=== PATIENT | male | born 1985 | race Caucasian/White ===

== ENCOUNTER 2022-05-20 18:46 | Inpatient (IN) | payer MEDICAID ==
[~2022-05-20] VITALS: Ht 162.6 cm; Wt 73.0 kg
[2022-05-20] MEDS ORDERED: MORPHINE SULFATE 4 MG/ML CPJ (NOT FOR IM USE) IV STA (19:11)
[2022-05-20] MEDS ORDERED: ONDANSETRON HCL 4MG/2ML INJ IV STA (19:11)
[2022-05-20] MEDS ORDERED: SODIUM CHLORIDE 0.9% 1,000 ML IV ONE (19:15)
[2022-05-20] MEDS ORDERED: PANTOPRAZOLE SODIUM 40 MG/VIAL IV ONE (19:15)
[2022-05-20 19:52] LABS: BASOPHILS % 0.6 % (0.0-2.0); EOSINOPHILS % 0.2 % (0.0-5.0); HEMATOCRIT. 47.8 % (42.0-52.0); HEMOGLOBIN. 16.3 g/dL (14.0-18.0); LYMPHOCYTES % 20.7 % (20.0-50.0); MEAN CORPUSCULAR HEMOGLOBIN 31.2 pg (28.0-32.0); MEAN CORPUSCULAR VOLUME 91.4 fL (80.0-94.0); MEAN PLATELET VOLUME 7.2 fl (7.4-10.4); MONOCYTES % 8.4 % (2.0-8.0); NEUTROPHILS % 70.1 % (40.0-76.0); PLATELET 367 x1000/uL (130-400); RED BLOOD CELL COUNT 5.23 mill/uL (4.7-6.1); RED CELL DISTRIBUTION WIDTH 13.2 % (11.6-14.6)
[2022-05-20 20:01] LABS: PARTIAL THROMBOPLASTIN TIME 29.1 sec (23.4-31.0); PROTHROMBIN TIME 10.4 sec (9.6-11.0)
[2022-05-20 20:05] LABS: CHLORIDE 103 mEq/L (98-107)
[2022-05-20 20:16] LABS: ETHANOL BLOOD 124 mg/dL
[2022-05-20] MEDS: ONDANSETRON HCL 4MG/2ML INJ IV NR ×2 (21:06→21:07)
[2022-05-20 21:35] LABS: *AMPHETAMINES SCREEN URINE NEGATIVE (NEGATIVE); *BARBITURATES SCREEN URINE NEGATIVE (NEGATIVE); *BENZODIAZEPINES SCREEN URINE NEGATIVE (NEGATIVE); *COCAINE SCREEN URINE NEGATIVE (NEGATIVE); CANNABINOID URINE SCREEN NEGATIVE (NEGATIVE); METHADONE URINE SCREEN NEGATIVE (NEGATIVE); OPIATES URINE SCREEN NEGATIVE (NEGATIVE); PHENCYCLIDINE URINE SCREEN NEGATIVE (NEGATIVE)
[2022-05-20] MEDS ORDERED: NA PHOS,M-B/NA PHOS,DI-BA ENEMA 118ML PR PRN (21:45)
[2022-05-20] MEDS ORDERED: GUAIFENESIN 200MG/10ML SUGAR FREE UDC PO PRN (21:45)
[2022-05-20] MEDS ORDERED: LORAZEPAM 2MG/ML CPJ IV PRN (21:45)
[2022-05-20] MEDS ORDERED: IPRATROPIUM/ALBUTEROL 0.5-3(2.5)MG/3ML NEB NEB PRN (21:45)
[2022-05-20] MEDS ORDERED: KETOROLAC 15MG/ML VIAL IV PRN (21:45)
[2022-05-20] MEDS ORDERED: ZOLPIDEM TARTRATE 5MG TABLET PO PRN (21:45)
[2022-05-20] MEDS ORDERED: CLONIDINE 0.1MG TABLET PO PRN (21:45)
[2022-05-20] MEDS ORDERED: ACETAMINOPHEN 325MG TABLET PO PRN ×2 (21:45)
[2022-05-20] MEDS ORDERED: NITROGLYCERIN 0.4MG TABLET SL SL PRN (21:45)
[2022-05-20] MEDS ORDERED: ONDANSETRON HCL 4MG/2ML INJ IV PRN (21:45)
[2022-05-20] MEDS ORDERED: MAGNESIUM/ALUMINUM HYDROXIDE/SIMETHICONE 30ML UDC PO PRN (21:45)
[2022-05-20] MEDS ORDERED: DOCUSATE SODIUM 100MG CAPSULE PO PRN (21:45)
[2022-05-20 22:29] LABS: T4 FREE 0.93 ng/dL (0.76-1.46)
[2022-05-20 22:46] LABS: FOLIC ACID (FOLATE) SERUM 4.6 ng/mL (>5.38)
[2022-05-20] MEDS ORDERED: MVI, ADULT NO.1 10 ML, FOLIC ACID 1 MG, THIAMINE HCL 100 MG in SODIUM CHLORIDE 0.9% 1,0... IV SCH ×4 (23:00)
[2022-05-21 05:14] LABS: CHLORIDE 104 mEq/L (98-107)
[2022-05-21 05:15] LABS: BASOPHILS % 0.5 % (0.0-2.0); EOSINOPHILS % 0.2 % (0.0-5.0); HEMOGLOBIN. 14.8 g/dL (14.0-18.0); LYMPHOCYTES % 14.2 % (20.0-50.0); MEAN CORPUSCULAR HEMOGLOBIN 30.7 pg (28.0-32.0); MEAN CORPUSCULAR VOLUME 91.2 fL (80.0-94.0); MEAN PLATELET VOLUME 7.4 fl (7.4-10.4); MONOCYTES % 7.5 % (2.0-8.0); NEUTROPHILS % 77.6 % (40.0-76.0); PLATELET 313 x1000/uL (130-400); RED BLOOD CELL COUNT 4.83 mill/uL (4.7-6.1); RED CELL DISTRIBUTION WIDTH 13.3 % (11.6-14.6)
[2022-05-21 05:25] LABS: PHOSPHORUS 3.6 mg/dL (2.5-4.9)
[2022-05-21] MEDS ORDERED: PANTOPRAZOLE SODIUM 40 MG/VIAL IV SCH ×2 (09:00→10:45)
[2022-05-21] MEDS ORDERED: OMEP20TA23 MT (09:00)
[2022-05-21] MEDS ORDERED: FOLI-43 MT (09:00)
[2022-05-21 09:18] VITALS: BP 139/75
[2022-05-21] MEDS ORDERED: CHLORDIAZEPOXIDE 25MG CAPSULE PO SCH (14:00)
[2022-05-22] MEDS ORDERED: FOLIC ACID 1MG TABLET PO SCH ×2 (09:00)
== END 2022-05-21 09:20 | disposition home or self-care (01) | DRG 242 ==
LOC: ER 18:46 → UNDOADMIN 21:34 → OBSVTOIN 21:34 → CVICU 21:34 → MICUSO 21:34 → INTOOBSV 21:34 → EDBEDREQ 21:37 → EDBEDREQTM 21:37 → UNDOADMIN 05-21 09:00 → CVICU 05-21 09:00 → UNDODISIN 05-21 09:20 → CVICU 05-21 10:15 → 8WST 05-21 10:15
PROVIDERS: ADMIT Internal Medicine; ATTEND Internal Medicine
DX: K22.11 Ulcer of esophagus with bleeding (principal); K70.30 Alcoholic cirrhosis of liver without ascites; K70.10 Alcoholic hepatitis without ascites; D64.9 Anemia, unspecified; F10.229 Alcohol dependence with intoxication, unspecified; E03.8 Other specified hypothyroidism; E53.8 Deficiency of other specified B group vitamins; R74.01 Elevation of levels of liver transaminase levels; Y90.6 Blood alcohol level of 120-199 mg/100 ml
CPT/HCPCS: 36415; 71045; 74176; 80053; 80305; 80320; 82607; 82746; 82962; 83540; 83550; 83735; 83880; 84100; 84439; 84443; 84484; 85025; 93005; 93970; 99285; C9113; J2270; J2405; J3411; J3490; J7030; G0480

== ENCOUNTER 2023-04-17 21:17 | Emergency (ER) | payer SELFPAY ==
[~2023-04-17] VITALS: Ht 170.2 cm; Wt 70.0 kg
[~2023-04-17 21:17] MED LIST: FOLI-43 MT; OMEP20TA23 MT
[2023-04-17 21:29] VITALS: BP 125/79; PULSE 129; RESP 16; TEMP 100.2; O2SAT 98
== END 2023-04-18 02:06 | disposition left against medical advice (07) ==
LOC: ER 21:17
DX: R10.9 Unspecified abdominal pain (principal); Z53.21 Procedure and treatment not carried out due to patient leaving prior to being seen by health care provider
CPT/HCPCS: 99281